=== PATIENT | female | born 1950 | race Caucasian/White ===

== ENCOUNTER → 2018-12-21 | Outpatient (CLI) | payer OTHER ==
[~2018-12-21] MED LIST: ALBUTEROL2.5 MG/31 INH; APAP500 PO; ATIVAN0.5 MG PO; AUGMENTIN 875-1 EACH PO; CELEXA PO; CELEXA20 MG PO; CYCLOBENZAPRINE PO; GABAPENTIN 100100 MG PO; HYDROCODON-ACE1 EAC5 PO; LEVALBUTER1.25 MG/0. INH; LEVAQUIN 750 M750 MG PO; LIPITOR 20 MG T20 M1 PO; MOBIC PO; MULTIVITAMINS PO; NEBULIZER MISCELL; NORVASC5 MG PO; PIOGLITAZONE15 MG PO; PREDNISONE 10 M10 MG PO; PROTONIX40 M1 PO; SINGULAIR 10 MG10 M1 PO; TOPROL XL100 MG PO; TRELEGY ELLIPT1 EACH INH; VENTOLIN HFA 1818 GM INH; VITAMIN D 5050000 I1 PO; ZANTAC 150MG T150 MG PO
== END ==
LOC: M.MRI 12:57
DX: C34.92 Malignant neoplasm of unspecified part of left bronchus or lung (principal); C78.7 Secondary malignant neoplasm of liver and intrahepatic bile duct

== ENCOUNTER 2018-12-23 11:37 | Inpatient (IN) | payer OTHER ==
[~2018-12-23] VITALS: Ht 160 cm; Wt 111.3 kg
--- NOTE | ~2018-12-23 | CON ---
[address] [address] CONSULTATION Name: BROOK CHAVIRA Room: [address] IN M.R.#: [id number] Admission: 12/23/18 Attend Phys: Reginald Zimmer MD Discharge: 12/28/18 Date of : 50 Report #: [id number] THIS REPORT FOR: //name// CC: Reginald Zimmer [facility] DATE OF SERVICE: 12/27/2018 CONSULTING PHYSICIAN: Reginald Zimmer MD REASON FOR CONSULTATION: Acute kidney injury. HISTORY OF PRESENT ILLNESS: A 68-year-old female with a history of small cell lung cancer followed by Dr. Whitley, has not started chemotherapy as of yet, was admitted with SVT noted when she was having an outpatient port placed for chemotherapy. Presently, she is somewhat confused, but not in any distress. She has a friend present at the bedside who was an ICU nurse and is able to provide some of the history as the patient herself is a bit confused. She is not complaining of any chest pain or shortness of breath. She has a Simms catheter in place, is making urine. REVIEW OF SYSTEMS: Constitutional, psych, heme, eyes, ENT, respiratory, cardiac, GI, , endocrine, all negative except as documented above. PAST MEDICAL HISTORY: Small cell lung cancer with metastatic disease, COPD, history of hypertension, dyslipidemia. CURRENT MEDICATIONS: Reviewed. FAMILY HISTORY: Not pertinent. SOCIAL HISTORY: Previous history of tobacco. PHYSICAL EXAMINATION: VITAL SIGNS: Blood pressure 122/63, pulse 72, respirations 10, temperature 36.4. GENERAL: No acute distress. Eyes open. EARS: Externally normal. NECK: Supple. CARDIOVASCULAR: Regular rate. LUNGS: No crackles heard. ABDOMEN: Soft. MUSCULOSKELETAL: Bilateral lower extremity pitting edema. NEUROLOGIC: Awake, but does not have normal judgment and insight at this time. LABORATORY DATA: White cell count 13.7, hemoglobin 14.1, platelets [place] [address] CONSULTATION Name: BROOK CHAVIRA Room: [address] IN ..#: [id number] Admission: 12/23/18 Attend Phys: Reginald Zimmer MD Discharge: 12/28/18 Date of : 50 Report #: [id number] 131, potassium 5.5, chloride 96, bicarbonate 14, BUN 105, creatinine 3.8, glucose 95, calcium 9.7, albumin 2.4. ASSESSMENT: 1. Acute kidney injury with 12/06 creatinine was 0.7, up to 1.5 on 12/23, now up to 3.8 with a BUN of 105, EF of 60 percent to 65 percent with pericardial effusion on echo. She did present with supraventricular tachycardia. 2. Bilateral lower extremity pitting edema, which has been ongoing for a few weeks. She did have a venous Doppler done without evidence of DVT in either extremity. She was on a pioglitazone as an outpatient. 3. Hyperkalemia. Potassium 5.5 on 12/27. 4. Hyponatremia. Sodium 131 on 12/27. 5. Metastatic small cell lung cancer followed by Dr. Whitley as an outpatient, has not yet initiated chemotherapy. 6. Supraventricular tachycardia, now controlled with beta maryann, followed by Dr. Moreland in the hospital. 7. Chronic obstructive pulmonary disease. 8. Metabolic/lactic acidosis with a bicarbonate of 14 on 12/27. She had a pH of 7.25 and lactic acid up to 9. 9. Hypoalbuminemia with an albumin of 2.4. PLAN: 1. She is making urine, currently on a normal saline. We will discontinue that and initiate a bicarbonate drip. 2. We will ask pharmacy to renally dose Ultram and gabapentin. 3. Hyperkalemia. Will hopefully improve with a bicarbonate. We will recheck her lab this afternoon. She is yet to meet with Dr. Whitley but is currently no code. Oncology is planning to see her this afternoon to discuss prognosis. I did discuss with her the possibility of dialysis should she develop refractory hyperkalemia or worsening kidney function. Once her and family received prognostic information from Oncology, they will then make a decision whether they would wish to go that route should it become necessary. 4. Check UA with micro urine protein to creatinine ratio. 5. We will follow closely along with you. Thank you for requesting my opinion in the care and management of this patient. By: [id number] Dahl MD /susan
[2018-12-23 12:46] VITALS: BP 122/72
[2018-12-23 12:57] LABS: HEMATOCRIT 40.3 % (37.0-47.0); HEMOGLOBIN 13.2 gm/dL (12.0-15.0); MCH 30.5 pg (26.0-34.0); MCHC 32.7 g/dL (28.0-37.0); MCV 93.3 fL (80.0-100.0); MPV 9.4 fl. (7.2-11.1); RBC 4.32 mil/uL (4.20-5.00); RDW-CV 15.7 % (10.5-14.5); WBC 16.5 thou/uL (4.0-11.0)
[2018-12-23 13:08] LABS: APTT 22.7 Seconds (25.0-31.3); CALCIUM 9.7 mg/dL (8.5-10.1); CREATININE 1.5 mg/dL (0.6-1.3); INR 1.1; POTASSIUM 4.3 mmol/L (3.5-5.1); PROTIME 11.4 Seconds (9.20-11.50)
[2018-12-23 15:15] VITALS: BP 131/68
[2018-12-23 15:31] VITALS: BP 136/78
[2018-12-23 15:46] VITALS: BP 118/65
[2018-12-23 16:35] VITALS: BP 137/72
--- NOTE | 2018-12-23 16:45 | NUR ---
PT ARRIVED TO UNIT FROM IR AT APPROX 1635, PT A&O X4, BP STABLE, MVA OPERATOR TRACING SINUS TACH, LS DIMINISHED, 3LPM O2 VIA. 4+ PITTING EDEMA TO BLE, HIPS, AND ABDOMEN, PT IS DYSPNEIC WITH MINIMAL EXERTION, HAVING TO STOP FOR BREATHS AFTER EVERY 2-3 WORDS. CALL LIGHT IN REACH, FALL PRECAUTIONS IN PLACE, ORIENTED TO CALL LIGHT AND ROOM.
[2018-12-23 20:00] VITALS: BP 126/64
[2018-12-24] VITALS (7 sets, daily range): BP systolic 125–141; BP diastolic 55–73
[2018-12-24 04:36] LABS: CALCIUM 9.1 mg/dL (8.5-10.1); CREATININE 1.7 mg/dL (0.6-1.3); POTASSIUM 4.5 mmol/L (3.5-5.1)
[2018-12-24 05:12] LABS: HEMATOCRIT 36.8 % (37.0-47.0); HEMOGLOBIN 11.9 gm/dL (12.0-15.0); MCHC 32.4 g/dL (28.0-37.0); MCV 95.8 fL (80.0-100.0); NUCLEATED RBCS 2 /100WBC; PLATELET COUNT* 164 thou/uL (150-400); RBC 3.85 mil/uL (4.20-5.00); RDW-CV 15.6 % (10.5-14.5); WBC 12.1 thou/uL (4.0-11.0)
--- NOTE | 2018-12-24 05:36 | NUR ---
ASSUMED CARE OF PT AFTER REPORT AT 1930. PT A&OX4. VSS. PHYSICAL ASSESSMENT COMPLETED AND CHARTED. PT ON O2 AT 3L NC. PT TRACING SR ON TELE. PT UPSTANDBY TO BSC. PT DENIES ANY PAIN OR DISCOMFORT. PT ABLE TO SLEEP WELL ON BED. CALL LIGHT WITHIN REACH.
[2018-12-24 06:05] LABS: ABSOLUTE EOSINOPHILS 0.1 thou/uL (0.0-0.7); ABSOLUTE LYMPHOCYTES 0.2 thou/uL (0.8-5.3); ABSOLUTE MONOCYTES 0.5 thou/uL (0.0-1.2); ABSOLUTE NEUTROPHILS 11.3 thou/uL (1.6-8.1); PLATELET ESTIMATE ADEQUATE; POLYCHROMASIA 1+
[2018-12-24 06:07] LABS: ANISOCYTOSIS 1+; POIKILOCYTOSIS 1+
--- NOTE | 2018-12-24 11:34 | NUR ---
Nutrition: Pt admitted with SVT during port insertion. H/o COPD, liver masses, new lung cancer with METS. Physician indicated PCM - defer DX. BUN 50, cr 1.7, BG WNL. No albumin recorded. Wt fluctuates 225-250# this year, per [employer]. Current wt is 242#. Heart Healthy diet ordered. Seen for high BMI. Pt has pitting edema - wt fluctuations. Encourage good po intake. Pt is at risk for malnutrition d/t DX. Appears nutritionally stable at this time. Mild risk. Will follow up per protocol.
--- NOTE | 2018-12-24 13:39 | 2DMMODE ---
[address] [address] 2 D/M-MODE ECHOCARDIOGRAM Name: BROOK CHAVIRA Room: [facility] ADM IN Pratik#: [id number] Admission: 12/23/18 Attend Phys: Reginald Zimmer, Discharge: Date of : 50 Date of Service: 12/24/18 1339 Report #: [id number] THIS REPORT FOR: //name// APPROVED REPORT Study performed: 12/24/2018 11:17:06 EXAM: Limited 2D Echocardiogram Patient Location: In-Patient Room #: [facility] Status: routine BSA: 2.09 HR: 71 bpm BP: 126/55 mmHg Rhythm: NSR Other Information Study Quality: Good Indications Dyspnea rule out effusion, edema, cancer Left Ventricle The left ventricle is normal size. There is normal left ventricular wall thickness. The left ventricular systolic function is normal. LVEF is 60-65%. Right Ventricle The right ventricle is normal size. The right ventricular systolic function is normal. Atria The left atrium size is normal. The right atrium size is normal. Aortic Valve The aortic valve is normal in structure. Mitral Valve There is mitral annular calcification. Tricuspid Valve The tricuspid valve is not well visualized. Pulmonic Valve [address] [place] [address] 2 D/M-MODE ECHOCARDIOGRAM Name: BROOK CHAVIRA Room: [place] [address] ADM IN M.R.#: [id number] Admission: 12/23/18 Attend Phys: Reginald Zimmer, Discharge: Date of : 50 Date of Service: 12/24/181338 Report #: [id number] Pulmonic valve is not well visualized. Great Vessels The aortic root is normal in size. Pericardium There is no pericardial effusion. There is no pleural effusion. <Conclusion> The left ventricle is normal size. There is normal left ventricular wall thickness. The left ventricular systolic function is normal. LVEF is 60-65%. There is no pericardial effusion. <ELECTRONICALLY SIGNED> By: Pito Moreland MD, FACC 12/24/181338 38 38 Pito Moreland MD, FACC /INF
--- NOTE | 2018-12-24 14:11 | NUR ---
MET WITH PT TO DISCUSS HOME SITUATION/DC PLANNING. PT KNOWN TO CM FROM PREVIOUS ADMIT. PT RECENTLY DX WITH CANCER, TO START CHEMO ON THURSDAY. PT STATES SHE PLANS TO DO THAT. SHE LIVES WITH SPOUSE, HE HAS BEEN ASSISTING HER THE LAST WEEK OR SO WITH PERSONAL CARES PT STATES SHE HAS GOTTEN WEAKER. SHE STATES THAT THEY DO NOT HAVE ANY FAMILY IN THE AREA, DO HAVE GOOD FRIENDS SUPPORT WITH MEALS, ETC. PT HAS CPAP AT HOME. HASN'T HAD HH BUT OPEN TO SOME OPTIONS. PT IS FAMILIAR WITH PALLIATIVE CARE AND HAS A FRIEND WITH [facility]. SHE VERBALIZED THAT SHE UNDERSTANDS PALLIATIVE CARE AND IS INTERESTED IN THAT. CALLED AND FAXED REFERRAL TO [facility] TO MEET WITH PT THIS AFTERNOON. PT DOESN'T HAVE A DPOA, STATED 'I NEED TO DO THAT, BUT WANT TO TALK WITH .' INFO DISCUSSED AND LEFT AT BEDSIDE. ALSO DISCUSSED HH AND PRIVATE DUTY, PT FAMILIAR WITH [facility], FAXED INITIAL REFERRAL TO [facility] AND GAVE PT WRITTEN INFO ON PRIVATE DUTY. WILL FOLLOW
--- NOTE | 2018-12-24 15:25 | CON ---
[address] [address] CONSULTATION Name: BROOK CHAVIRA Room: [place] [address] ADM IN M.R.#: [id number] Admission: 12/23/18 Attend Phys: Reginald Zimmer MD Discharge: Date of : 50 Report #: [id number] THIS REPORT FOR: //name// CC: Reginald Herrera DO INDICATION: SVT. HISTORY OF PRESENT ILLNESS: The patient is a pleasant 68-year-old white female, recently diagnosed with metastatic small cell lung cancer. She was in the hospital for port placement prior to receiving chemotherapy when she was noted to have an episode of supraventricular tachycardia. She was admitted and on telemetry has had a second episode of nonsustained supraventricular tachycardia. The patient does not have any significant symptoms with these episodes. Presently, she is in sinus rhythm and without specific cardiac complaint. PAST MEDICAL HISTORY: 1. COPD. 2. Small cell lung cancer with metastatic disease to the liver. 3. Nonsustained supraventricular tachycardia. ALLERGIES: ATROPINE AND SULFA. CURRENT MEDICATIONS: Amlodipine 5 mg daily, prednisone 10 mg daily, albuterol 2 puffs p.r.n., Xopenex daily, Singulair 10 mg at bedtime, metoprolol succinate 100 mg daily, gabapentin 100 mg t.i.d., citalopram 20 mg daily, Actos 15 mg 2 tablets daily, Trelegy Ellipta inhaler daily, pantoprazole 40 mg daily. PAST MEDICAL HISTORY: Bilateral cataract surgery, hypertension, hyperlipidemia, GERD and right wrist surgery. FAMILY HISTORY: Noncontributory. SOCIAL HISTORY: The patient quit smoking many years ago. She drinks alcohol rarely. REVIEW OF SYSTEMS: Her 14-point review of systems is positive for COPD, cough nonproductive, history of pneumonia, dyspnea on exertion, lower extremity edema, gastroesophageal reflux, history of small cell lung cancer, medical allergies outlined above and she wears glasses without acute visual changes. PHYSICAL EXAMINATION: VITAL SIGNS: Blood pressure 139/64, pulse 76 and regular. GENERAL: This is a pleasant lady in no distress. Mood and affect slightly blunted. HEENT: Extraocular muscles intact[place] [address] CONSULTATION Name: BROOK CHAVIRA Room: [address] IN [facility]#: [id number] Admission: 12/23/18 Attend Phys: Reginald Zimmer MD Discharge: Date of : 50 Report #: [id number] NECK: Shows no jugular venous distention. There are no carotid bruits. CHEST: Reveals clear lung gutiérrez with diminished breath sounds. I do not appreciate wheezes or rales. CARDIAC: Reveals a regular rhythm with normal S1 and S2. I do not appreciate gallop or rub. ABDOMEN: Reveals a protuberant abdomen. Soft, bowel sounds present. EXTREMITIES: Shows 2+ pitting edema to the thighs bilaterally. IMPRESSION AND RECOMMENDATIONS: 1. Supraventricular tachycardia. At this point in time, I am going to stop amlodipine and double beta maryann and follow on telemetry. 2. Lower extremity edema, etiology not clear. We will place Simms catheter and start IV Lasix. I am obtaining an echocardiogram to rule out pericardial involvement with her lung cancer. Recent echo showed normal LV function with an EF of 60-65% and grade 1 diastolic dysfunction. No other abnormalities were noted. 3. Hypertension. Blood pressure adequately controlled presently. 4. Small cell lung cancer per Oncology. <ELECTRONICALLY SIGNED> By: Pito Moreland MD, FACC 12/24/18 1525 [id number] Moreland MD, FACC /nt
--- NOTE | 2018-12-24 17:29 | NUR ---
PT CARE ASSUMED AFTER REPORT. ASSESSMENT COMPLETE. SR ON MONITOR. PT APPEARS DEPRESSED WITH INCREASED ANXIETY. XANAX GIVEN WITH LITTLE RELIEF. DR DIHN CAME TO SEE THE PT AND ODERED DIAZEPAM THAT SEEMS TO BE RELIEVING HER ANXIETY. DR DINH WOULD LIKE TO BE NOTIFIED OF ANY CHANGES. HIS CELL PHONE #[phone]. GUILHERME PLACED TO DD. PT REPORTS INCREASED WEAKNESS. DENIES PAIN. SLOW TO PROGRESS TOWARDS GOALS.
[2018-12-25] VITALS: BP 131/63
[2018-12-25 04:30] VITALS: BP 119/62
[2018-12-25 05:15] LABS: WBC 13.1 thou/uL (4.0-11.0)
[2018-12-25 05:17] LABS: HEMATOCRIT 37.5 % (37.0-47.0); HEMOGLOBIN 12.4 gm/dL (12.0-15.0); MCH 31.3 pg (26.0-34.0); MCHC 33.1 g/dL (28.0-37.0); MCV 94.5 fL (80.0-100.0); MPV 9.9 fl. (7.2-11.1); NUCLEATED RBCS 1 /100WBC; PLATELET COUNT* 161 thou/uL (150-400); RBC 3.97 mil/uL (4.20-5.00); RDW-CV 15.5 % (10.5-14.5)
[2018-12-25 05:47] LABS: ALBUMIN 2.5 g/dL (3.4-5.0); CALCIUM 9.2 mg/dL (8.5-10.1); CREATININE 2.4 mg/dL (0.6-1.3); TOTAL BILIRUBIN 10.6 mg/dL (<0.1-1.0); TOTAL PROTEIN 5.8 g/dL (6.4-8.2)
[2018-12-25 05:58] LABS: POTASSIUM 5.2 mmol/L (3.5-5.1)
[2018-12-25 06:45] LABS: ABSOLUTE LYMPHOCYTES 0.8 thou/uL (0.8-5.3); ABSOLUTE MONOCYTES 0.3 thou/uL (0.0-1.2); ABSOLUTE NEUTROPHILS 12.1 thou/uL (1.6-8.1); HYPOCHROMASIA 1+; PLATELET ESTIMATE ADEQUATE; POLYCHROMASIA 1+
[2018-12-25 06:46] LABS: ANISOCYTOSIS 1+; POIKILOCYTOSIS 1+
--- NOTE | 2018-12-25 07:33 | NUR ---
ASSUMED CARE OF PT AFTER REPORT AT 1930. PT A&OX4. VSS. PHYSICAL ASSESSMENT COMPLETED AND CHARTED. PT ON O2 AT 3L NC. PT TRACING SR ON TELE. [facility] PT DENIES ANY PAIN OR DISCOMFORT. ABLE TO SLEEP WELL ON BED. CALL LIGHT WITHIN REACH.
[2018-12-25 08:00] VITALS: BP 115/63
[2018-12-25 11:51] VITALS: BP 121/73
[2018-12-25 16:11] VITALS: BP 121/70
--- NOTE | 2018-12-25 16:55 | NUR ---
ASSUMED PT CARE AT 0800, AOX4, BEDREST, O2 SAT 90'S 3L NC. TRACING SR ON TELE. PT DENIES PAIN. PT HAS VANEGAS CATH DRAINING WELL. FOR ACCU CHECK. VSS, AM ASSESSMENT CHARTED. MEDS GIVEN PER MAR. HOURLY ROUNDING. WILL CONTINUE TO MONITOR.
[2018-12-25 20:00] VITALS: BP 108/69
[2018-12-26 00:41] VITALS: BP 104/51
[2018-12-26 04:00] VITALS: BP 115/60
--- NOTE | 2018-12-26 06:10 | NUR ---
ASSUMED CARE OF PT AFTER REPORT AT 1930. PT A&OX4. VSS. PHYISCAL ASSESSMENT COMPLETED AND CHARTED. PT ON O2 AT 2L NC. PT TRACING SR/ST ON TELE. PT UP STANDBY TO BSC. PTS HR WENT UP TO 150'S TO 15O'S WHILE GETTING UP TO BSC. PT COMPLAINED OF BACK PAIN- PAIN MEDS GIVEN PER AUG. PT ALSO REQUESTED FOR A SLEEPING PILL- DR KIDD INFORMED WITH NEW ORDER. CALL LIGHT WITHIN REACH.
[2018-12-26 08:35] VITALS: BP 123/60
[2018-12-26 12:24] VITALS: BP 133/67
[2018-12-26 15:49] VITALS: BP 143/78
--- NOTE | 2018-12-26 18:04 | NUR ---
PT VERY FATIGUED THIS SHIFT, EYES JAUNDICED, PAIN WELL MANAGED THIS SHIFT. PT NSR ON THE MONITOR WITH NO CARDIAC COMPLICATIONS THIS SHIFT. PT LEFT HAND IV INFILTRATED AND REMOVED THIS SHIFT AND NEW IV ACCESS OBTAINED. PT HAS R PORT THAT IS CURRENTLY NOT ACCESSED. PT HAS LLE EDEMA. PT BLOOD GLUCOSE MANAGED WITH INSULIN THIS SHIFT. DR DINH ON THE UNIT AND HE GAVE VERBAL ORDER FOR CMP, AMMONIA, AND CBC WITH DIFF FOR TOMORROW AM. PT NOT AMBULATING AT THIS TIME. PT HAS VANEGAS WITH DARK YELLOW OUTPUT DUE TO IV LASIX USE AND STRICT I/O. WILL PAGE DR KIDD DUE TO PT REDUCED URINE OUTPUT THIS SHIFT. PT APPEARS TO BE SOA, BUT HAS GOOD O2 SATS AND DIMINISHED LUNG SOUNDS WITH MINIMAL AIR MOVEMENT ON THE RIGHT. HOURLY ROUNDING MAINTAINED AND FALL PXN IN PLACE. WILL CONTINUE TO MONITOR AND ASSESS.
[2018-12-26 20:00] VITALS: BP 143/95
[2018-12-26 22:29] LABS: BE -14.5 mmol/L (-2 to +3); PCO2 24.8 mmHg (35.0-45.0); PO2 96.5 mmHg (75.0-100.0)
[2018-12-26 22:32] LABS: pH 7.252 (7.340-7.450)
--- NOTE | 2018-12-26 22:38 | NUR ---
ASSUMED PT CARE AT 1930. ASSESSMENT COMPLETED CHARTED. PT USING ACCESSORY MUSCLES TO BREATHE, NO SOA STATED, STATES SHE DOESNT FEEL GOOD, HAD EMESIS X2 ON HERSELF AND DIDNT HAVE THE STRENGHT TO HOLD UP BASIN. NO C/O PAIN. VANEGAS IN PLACE DRAINING A VERY SMALL AMOUNT OF URINE. ASCITES SHOWING UP AND STOMACH IS FIRM. PT NOT OPENING HER EYES AND GETTING HARDER TO AROUSE. NOTIFIED PHYSICIAN OF STATUS AND NEW ORDERS RECIEVED. WILL CONTINUE TO MONITOR.
[2018-12-26 23:04] LABS: MCH 31.2 pg (26.0-34.0)
[2018-12-26 23:06] LABS: CALCIUM 9.6 mg/dL (8.5-10.1); HEMATOCRIT 47.5 % (37.0-47.0); MCHC 31.4 g/dL (28.0-37.0); MCV 99.3 fL (80.0-100.0); MPV 10.2 fl. (7.2-11.1); NUCLEATED RBCS 4 /100WBC; PLATELET COUNT* 193 thou/uL (150-400); RBC 4.78 mil/uL (4.20-5.00); RDW-CV 16.1 % (10.5-14.5); WBC 14.2 thou/uL (4.0-11.0)
[2018-12-26 23:08] LABS: HEMOGLOBIN 14.9 gm/dL (12.0-15.0)
[2018-12-26 23:11] LABS: CREATININE 3.9 mg/dL (0.6-1.3)
[2018-12-26 23:13] LABS: POTASSIUM 6.7 mmol/L (3.5-5.1)
[2018-12-27] VITALS (21 sets, daily range): BP systolic 90–141; BP diastolic 48–108
[2018-12-27 00:10] LABS: ABSOLUTE MONOCYTES 0.1 thou/uL (0.0-1.2); ABSOLUTE NEUTROPHILS 12.1 thou/uL (1.6-8.1); ATYPICAL LYMPHS 1 %
[2018-12-27 00:11] LABS: PLATELET ESTIMATE ADEQUATE
[2018-12-27 00:12] LABS: ANISOCYTOSIS 2+; LARGE PLATELETS RARE
[2018-12-27 00:13] LABS: POLYCHROMASIA 1+; TARGET CELLS Occasional
--- NOTE | 2018-12-27 01:56 | NUR ---
0105 TRANSFERED DOWN WITH PT FROM [facility] TO ASSUME PT CARE IN ICU. ORDERS CARRIED OUT. PLACED ON TELEMETRY AND FREQUENT VS. HERE AT HOSPITAL.
[2018-12-27 04:32] LABS: HEMOGLOBIN 14.1 gm/dL (12.0-15.0); RDW-CV 15.7 % (10.5-14.5)
[2018-12-27 04:35] LABS: ABSOLUTE BASOPHILS 0.1 thou/uL (0.0-0.2); ABSOLUTE LYMPHOCYTES 4.7 thou/uL (0.8-5.3); ABSOLUTE MONOCYTES 0.8 thou/uL (0.0-1.2); ABSOLUTE NEUTROPHILS 8.1 thou/uL (1.6-8.1); BASOPHILS 0.9 %; EOSINOPHILS 0.2 %; LYMPHOCYTES 34.2 %; MCH 31.3 pg (26.0-34.0); MCHC 31.9 g/dL (28.0-37.0); MONOCYTES 5.5 %; MPV 10.1 fl. (7.2-11.1); NUCLEATED RBCS 4 /100WBC; PLATELET COUNT* 166 thou/uL (150-400); POLYS 59.2 %; RBC 4.49 mil/uL (4.20-5.00); WBC 13.7 thou/uL (4.0-11.0)
[2018-12-27 04:50] LABS: ALBUMIN 2.4 g/dL (3.4-5.0); CALCIUM 9.7 mg/dL (8.5-10.1); CREATININE 3.8 mg/dL (0.6-1.3); TOTAL PROTEIN 5.8 g/dL (6.4-8.2)
[2018-12-27 04:52] LABS: POTASSIUM 5.5 mmol/L (3.5-5.1)
--- NOTE | 2018-12-27 05:20 | NUR ---
PT CURRENTLY RESTING IN BED ON BIPAP 35% FIO2 SATS 97% PT REMAINS DROWSY BUT ARROUSABLE TO VOICE. PT SR ON MONITOR. VSS. PT CONTINUES WITH INSULIN GTT, BICARB GTT, AND MAINTENANCE IVFs. PT HAS NOT C/O PAIN TONIGHT. ASCITES WITH ABD WEEPING. REMAINS JAUNDICE. AM LABS REVIEWED.
--- NOTE | 2018-12-27 10:22 | NUR ---
Nutrition: follow up note. Pt in ICU now. Making Palliative/hospice decisions today. Is DNR. Drinking fluids well. Per ICU rounds, physician allowed regular diet. Wt stable. Defer further nutrition unless consulted.
[2018-12-27 11:53] LABS: ALBUMIN 2.6 g/dL (3.4-5.0); CALCIUM 9.4 mg/dL (8.5-10.1); PHOSPHORUS* 7.9 mg/dL (2.5-4.9); POTASSIUM 5.7 mmol/L (3.5-5.1)
[2018-12-27 13:39] LABS: CALCIUM 9.1 mg/dL (8.5-10.1)
[2018-12-27 13:42] LABS: POTASSIUM 6.1 mmol/L (3.5-5.1)
--- NOTE | 2018-12-27 22:10 | NUR ---
INITAL ASSESMENT COMPLETED AT 1930. PT CONFUSED AND RESTLESS AT THAT TIME. PT GIVEN PRN ATIVAN WITH GOOD RESULTS. PT'S FRIEND SITTING AT BEDSIDE. FREQUENT ROUNDS DONE. FRIEND NOTIFYING STAFF FOR PT NEEDS.
--- NOTE | 2018-12-28 02:09 | NUR ---
AT 0005 PT'S FAMILY MEMBERS NOTIFIED THIS HOSPITALIST THAT PT HAD STOPPED BREATHING. PT ASSESED BY MYSELF AND ANOTHER RN. NO PUPILARY RESPONSE. NO AUDIBLE HEART TONES. NO PALPABLE PULSES. PT PRONOUNCED AT 0015. NURSING [employer]ICE LICENSEE, MANGLE TENDER CLOTH, SECURITY AND PRIMARY PHYSICAN NOTIFIED. PT'S NOTIFIED. FATHER KARISSA PAGED BY MANGLE TENDER CLOTH. BONI LOERA MADE ARRANGEMENTS FOR LAST RIGHTS TO BE DONE AT HOME. PT TAKEN TO [facility] AT 0150 BY BONI LOERA. NO BELONGINGS OR VALUABLES IN ROOM OR ON PT. SECURITY ESCORTED BODY OUT OF FACILITY AT 0150.
== END 2018-12-28 00:15 | DRG 673 ==
LOC: M.INT 11:37 → M.TBA-ER 15:46 → M.2W 15:46 → M.ICU 12-27 01:14 → M.ORTHSURG 12-27 19:18
PROVIDERS: General Practice; Internal Medicine; Internal Medicine Nephrology; Radiology Diagnostic Radiology; ADMIT Internal Medicine
DX: N17.0 Acute kidney failure with tubular necrosis (principal); J96.00 Acute respiratory failure, unspecified whether with hypoxia or hypercapnia; E43 Unspecified severe protein-calorie malnutrition; C34.90 Malignant neoplasm of unspecified part of unspecified bronchus or lung; E87.1 Hypo-osmolality and hyponatremia; G93.40 Encephalopathy, unspecified; I47.1 Supraventricular tachycardia; C78.7 Secondary malignant neoplasm of liver and intrahepatic bile duct; E87.2 Acidosis; J44.9 Chronic obstructive pulmonary disease, unspecified; E78.5 Hyperlipidemia, unspecified; Z66 Do not resuscitate; K21.9 Gastro-esophageal reflux disease without esophagitis; E87.5 Hyperkalemia; I12.9 Hypertensive chronic kidney disease with stage 1 through stage 4 chronic kidney disease, or unspecified chronic kidney disease; E78.00 Pure hypercholesterolemia, unspecified; N18.3 Chronic kidney disease, stage 3 (moderate); Z88.2 Allergy status to sulfonamides; Z88.8 Allergy status to other drugs, medicaments and biological substances; Z98.42 Cataract extraction status, left eye; Z98.41 Cataract extraction status, right eye; Z87.891 Personal history of nicotine dependence